=== PATIENT | male | born 1990 | race Caucasian/White ===

== ENCOUNTER 2017-10-17 15:14 | Emergency (ER) | payer OTHER ==
[~2017-10-17] VITALS: Ht 165.1 cm; Wt 58.1 kg
== END 2017-10-17 20:20 | disposition home or self-care (01) ==
LOC: ER 15:14
DX: S13.4XXA Sprain of ligaments of cervical spine, initial encounter (principal); S40.012A Contusion of left shoulder, initial encounter; S50.12XA Contusion of left forearm, initial encounter; V49.9XXA Car occupant (driver) (passenger) injured in unspecified traffic accident, initial encounter; Y93.89 Activity, other specified; Y92.488 Other paved roadways as the place of occurrence of the external cause; Y99.8 Other external cause status